=== PATIENT | female | born 1955 | race Caucasian/White ===

== ENCOUNTER 2017-03-19 13:08 | Inpatient (IN) ==
--- NOTE | 2017-03-18 21:42 | Discharge Summary ---
<Tamera Arce - Last Filed: 03/18/17 21:39> Date of Encounter: 03/18/17 - Discharge Diagnosis (1) Arthritis of knee, right Priority: Primary Status: Acute (2) Status post total knee replacement, right Priority: Primary Status: Acute (3) HTN (hypertension) Priority: Secondary Status: Chronic Qualifiers: Hypertension type: essential hypertension Qualified Code(s): I10 - Essential (primary) hypertension (4) Obesity Priority: Secondary Status: Chronic Qualifiers: Obesity type: unspecified obesity type Obesity classification: unspecified obesity classification (5) Depression Priority: Secondary Status: Chronic Qualifiers: Depression Type: unspecified Qualified Code(s): F32.9 - Major depressive disorder, single episode, unspecified - Discharge Medications Home Medications: Aspirin Enteric Coated [Aspirin EC] 325 mg PO DAILY #21 tablet.dr 03/18/17 [Rx] OxyCODONE Immed Rel [Roxicodone 5 MG] 5 mg PO Q6HR PRN #28 tablet 03/18/17 [Rx] DULoxetine [Cymbalta] 30 mg PO DAILY 03/19/17 [History] Duloxetine HCl [Cymbalta] 60 mg PO DAILY 03/19/17 [History] Allergies/Adverse Reactions: 3 Allergy/AdvReac Type Severity Reaction Status Date / Time No Known Allergies Allergy Verified 03/19/17 14:08 Primary care physician: Elfego Lee, - Patient Status Disposition: Home, Self-Care Condition: Good - Discharge Instructions Follow Up With: Elfego Lee MD [Primary Care Provider] - - Hospital Course Hospital course: Ms. Siegel is a 61 year old female - Time Spent with Patient Total time spent providing and/or coordinating discharge services: <Andriy Gusman - Last Filed: 03/20/17 06:32> Date of Encounter: 03/20/17 Time of Encounter: 06:32 - Discharge Diagnosis (1) Arthritis of knee, right Priority: Primary Status: Chronic (2) Status post total knee replacement, right Priority: Primary Status: Acute (3) HTN (hypertension) Priority: Secondary Status: Chronic Qualifiers: Hypertension type: essential hypertension Qualified Code(s): I10 - Essential (primary) hypertension (4) Obesity Priority: Secondary Status: Chronic Qualifiers: Obesity type: unspecified obesity type Obesity classification: adult class 3 (BMI >= 40) Body mass index: BMI 45.0-49.9 (5) Depression Priority: Secondary Status: Chronic Qualifiers: Depression Type: unspecified Qualified Code(s): F32.9 - Major depressive disorder, single episode, unspecified Primary care physician: Elfego Lee, - Patient Status Functional capacity at discharge: uses cane/walker Overall status at discharge: patient is progressing back to baseline - Hospital Course Hospital course: Ms. Siegel is a 61 year old female Status post right total knee replacement The patient had an uneventful postoperative course. They received antibiotics and physical therapy and were discharged in stable condition. There will follow -up in the office in 2 weeks. - Time Spent with Patient Total time spent providing and/or coordinating discharge services:
--- NOTE | 2017-03-19 13:21 | Anesthesia Evaluation PreOp ---
Date of Encounter: 03/19/17 Time of Encounter: 13:19 - Past History Planned Operation: Right Total knee Arthroplasty Cardiac History: Denies any Significant Hx Pulmonary History: Denies Any Significant HX PARALEGALS History: Denies Any Significant HX Other Medical History: Other (Fibromyalgia, vit. D Def.) Anesthesia History: Past Anesthesia (SAMANTHA, Knee scope), Problems (PONV) : No Alcohol Use: none Drug use: none Medications and Allergies Aspirin Enteric Coated [Aspirin EC] 325 mg PO DAILY #21 tablet. 03/18/17 [Rx] OxyCODONE Immed Rel [Roxicodone 5 MG] 5 mg PO Q6HR PRN #28 tablet 03/18/17 [Rx] 3 Allergy/AdvReac Type Severity Reaction Status Date / Time No Known Allergies Allergy Unverified 06/07/15 10:05 - Meds/Allergy Pre-op Review Medications Reviewed: Yes Allergies Reviewed: Yes Beta Blockers on Current Med List: No Anesthesia Results - Labs Laboratory Tests 03/01/17 03/01/17 03/01/17 13:55 13:55 13:55 WBC 5.8 Hgb 12.4 Hct 39.5 Plt Count 326 INR 1.0 Sodium 138 Potassium 3.8 Chloride 105 Carbon Dioxide 24 BUN 10 Creatinine 0.78 - Imaging EKG: image reviewed (SR) Anesthesia Exam O2 Sat Height 1.7 m Height 1.7 m Weight 131.088 kg Weight 131.088 kg O2 Sat by Pulse Oximetry 98 Vital Signs Temp Pulse Resp BP Pulse Ox 97.6 F 97 18 169/91 98 03/19/17 13:19 03/19/17 13:19 03/19/17 13:19 03/19/17 13:19 03/19/17 13:19 Height: 5'7'' Weight: 289# NPO (# of Hours): > 8 hrs Pain Scale: 0 Pain Scale Used: Numeric (1 - 10) - HEENT Pupil (Motor): Pupils equal, EOMI Mallampati: III Teeth: Normal Oral Opening: Greater than 3 - PARALEGALS LOC: Oriented PARALEGALS Motor: Normal RUE, Normal LUE, Normal RLE, Normal LLE, Normal Face PARALEGALS Sensory: Normal: RUE, LUE, RLE, LLE, Face - Cardiac Rhythm: Regular Murmur: None JVD: No Carotid Bruit: No - Pulmonary Breath Sounds: bilateral Clear Respiratory Effort: Symmetrical Anesthesia Assess/Plan ASA Score: 3 (Right Fem. Nerve Block) Modified Wendie Scale for Level of Consciousness: Cooperative, oriented, and tranquil Anesthetic Plan: General, Regional Autologous Blood: Yes Monitoring Plan: Standard Monitors Recovery Plan: PACU
[2017-03-19] MEDS ORDERED: Scopolamine Patch 1.5 MG PATCH.TD72 TD ONE (13:28)
[2017-03-19] MEDS ORDERED: Lidocaine -MPF 1% 2 ML VIAL ID ONE (13:28)
[2017-03-19] MEDS ORDERED: CeFAZolin Syr 3,000MG/30 ML 3,000 MG/30 ML SYRINGE IVPB ONE (13:28)
[2017-03-19] MEDS ORDERED: Ringers Solution, Lactated 1,000 ML IVC SCH ×2 (13:30→20:48)
[2017-03-19] MEDS ORDERED: Ondansetron 4 MG/2 ML VIAL IVP PRN ×2 (13:31→20:48)
[2017-03-19] MEDS ORDERED: *HR* Propofol 200 MG/20 ML VIAL IVP ONE ×3 (13:33→19:01)
[2017-03-19] MEDS ORDERED: *HR* FentaNYL (PF) 100 MCG/2 ML VIAL ONE ×2 (13:33→19:01)
[2017-03-19] MEDS ORDERED: *HR* Midazolam HCl 2 MG/2 ML VIAL ONE ×2 (13:33→19:01)
--- NOTE | 2017-03-19 13:54 | History & Physical Report ---
Date of Encounter: 03/19/17 Time of Encounter: 13:54 24 Hour HP Update - Instructions Instructions: If the History and Physical is less than 30 days old and was completed prior to A.M. admission and or procedure and has NOT been updated on calendar day of procedure please complete this update prior to performing procedure. - Update Patient reports changes in Medical Condition: No Changes in examination, assessment, or condition: No Changes in Medication: No Preop tests/diagnostics Reviewed: Yes Surgery Remains Indicated: Yes Consent for Planned Operative Procedure(s) Verified: Yes - Pre-Operative Checklist Preoperative Checklist Indicated: No Prophylactic Antibiotic Ordered: Yes Is VTE Prophylaxis Indicated?: Yes
[2017-03-19] MEDS ORDERED: Bupivacaine/Clonidine Syringe 1 EACH SYRINGE ONE ×2 (15:54→16:16)
[2017-03-19] MEDS ORDERED: ROPIVACAINE HCL/PF 0.5% 30 ML VIAL ONE (15:54)
[2017-03-19] MEDS ORDERED: Ethanol\\Acetic Acid\\Na Ace\\Ben 1,000 ML IRRIG.SOLN IR ONE (16:26)
--- NOTE | 2017-03-19 16:30 | Anesthesia Procedures ---
Date of Encounter: 03/19/17 Time of Encounter: 16:28 Procedures: Anesthesia - Nerve Block Procedure Date: 03/19/17 Time: 16:28 Allergies/Adv Reactions: nkda Pre-op Diagnosis: R knee arthritis Surgical Procedure: R TKA Checklist: Correct Patient Identifier, Correct procedure, History checked Correct side: Right Blood Thinner: No Monitor Applied: EKG, BP, Pulse Oximetry Supplemental Oxygen via Nasal Cannula (L/min): 3 Sedation: Versed (mg): 2 Sedation: Fentanyl (mcg): 100 Indication: Post Op Analgesia (requested by Dr. Gusman) Pre-op Neuro Deficits: No Block Type: Other (Adductor canal block & iPACK block) Catheter placed: No Sterile Technique: Yes Ultrasound used: Yes Anatomy identified: Yes Visual spread of Local: Yes Neuro Stimulation: No Nerve Stimulator Range: 0.2 - 0.4 mA Blood on Needle Aspiration: No Smooth Injection of Local: Yes Pain with Injection of Local: No Prep: Chlorhexadine Needle: 21 x 100 mm Stimuplex Local: 0.25% Bupivicaine w/Clonidine 20 mcg/cc (40mL), Ropivacaine (30mL), Other (4mg dexamethasone) Number of Attempts: 1 Complications: None/effective block Vitals: please see Brenda Han RN's electronic documentation
[2017-03-19] MEDS ORDERED: *HR* Enoxaparin 30 MG/0.3 ML SYRINGE SQ SCH (18:00)
[2017-03-19] MEDS ORDERED: Acetaminophen IV 1,000 MG/100 ML INFUS..BTL ONE (18:02)
--- NOTE | 2017-03-19 18:33 | Orthopedic Operative Note ---
Date of procedure: 03/19/17 Pre-op diagnosis: Right knee arthritis Post-op diagnosis: same Procedure: Procedure: Right Total knee replacement Estimated blood loss: 300 cc Hardware: Metal and polyethylene replacement. Arthrex Femur: 6 Tibia: 6 PS insert: 18 Patella: 34 Exam Under anesthesia: Full flexion and extension no instability Procedural Notes: Grade 4 arthritic changes medial compartment grade 3 arthritic changes patellofemoral joint. Operative procedure: The patient was brought to the operating room and placed on the operating room table. After general anesthesia was administered the operative knee was examined. Findings were noted in the exam under anesthesia. The operative extremity was prepped and draped in sterile surgical fashion. The patient received IV antibiotics prior to skin incision. A standard midline incision was made centered over the patella. The incision was made through the skin and subcutaneous tissue. A medial parapatellar tendon approach was performed. Care was taken to preserve tissue along the medial aspect of the patella. And to protect the patella tendon. The deep MCL was released off the medial tibia. The infra patella fat pad was excised. Knee was brought into flexion. Patient noted to have grade 4 arthritic changes medial compartment and grade 3 arthritic changes patellofemoral joint. The entry hole was made for the intramedullary femoral guide. The guide was seated in 6 degrees of valgus. Anterior cut was made followed by the distal cut. The ACL the PCL the medial and the lateral menisci were excised. The tibia was subluxed forward. The entry hole was made for the intramedullary tibial guide. Guide was seated to resect 2 mm off the more abnormal side. The knee was brought into flexion the distal femur was sized to a 6. The femoral guide was seated, the anterior cut was made followed by the posterior condylar cut, followed by the chamfer cuts. The finishing guide was seated the box cut was made and the lug holes were drilled. The tibia was sized to a 6, the tibial tray was seated and prepared with the large drill followed by the fin cutter. Trial reduction revealed full extension no varus valgus instability with the appropriate 18 PS Lisa. The patella was everted and cut was made at the level of the insertion of the quadriceps and patella tendon. The patella was sized 34 the guide was seated and the lug holes are drilled. Trial reduction revealed excellent patella tracking. All trial components were removed all bony surfaces were irrigated. The tibia was cemented first followed by the femur. 18 PS Lisa was seated and the knee was brought into full extension. The patella was cemented and held in place with the patellar holding clamp. After the cement had hardened, the knee sat for 2 minutes with a Betadine saline solution. The PA closed the knee. The knee was then irrigated out with 2 L of pulse irrigation. The extensor mechanism was closed with #2 FiberWire suture and #2 PDS suture. The subcutaneous tissue was then irrigated and closed deep with #1 PDS suture superficially with 0 PDS suture and skin was closed with skin chante. The patient was then placed in a sterile dressing and a postoperative brace extubated and transferred to recovery room in stable condition. Anesthesia: GETSonia Surgeon: Andriy Gusman Condition: stable Disposition: PACU
[2017-03-19] MEDS ORDERED: Lidocaine -MPF 4% 5 ML AMPUL ONE (19:01)
[2017-03-19] MEDS ORDERED: Lidocaine -MPF 2% 2 ML VIAL ONE (19:01)
[2017-03-19] MEDS ORDERED: Ondansetron 4 MG/2 ML VIAL ONE (19:01)
[2017-03-19] MEDS ORDERED: Dexamethasone 4 MG/ML VIAL ONE ×2 (19:01)
[2017-03-19] MEDS ORDERED: *HR* HYDROmorphone 2 MG/ML SYRINGE ONE (19:01)
[2017-03-19] MEDS ORDERED: Ketorolac 30 MG/ML VIAL ONE (19:01)
[2017-03-19] MEDS: *HR* HYDROmorphone (PF) 1 MG/ML SYRINGE IVP PRN ×2 (19:20→19:27)
[2017-03-19 19:38] LABS: Hemoglobin 12.4 g/dL (11.5-15.4)
[2017-03-19] MEDS ORDERED: cloNIDine HCl 0.1 MG TABLET PO ONE (19:47)
[2017-03-19] MEDS ORDERED: MOM Conc 10 ML UD.LIQ PO PRN (20:48)
[2017-03-19] MEDS ORDERED: *HR* OxyCODONE Immed Rel 5 MG TABLET PO PRN (20:48)
[2017-03-19] MEDS ORDERED: Naloxone 0.4 MG/ML INJ IVP PRN (20:48)
[2017-03-19] MEDS ORDERED: Temazepam 15 MG CAPSULE PO PRN (20:48)
[2017-03-19] MEDS ORDERED: *HR* HYDROmorphone (PF) 1 MG/ML SYRINGE IVP PRN (20:48)
[2017-03-19] MEDS ORDERED: Sennosides 8.6 MG TABLET PO PRN (20:48)
[2017-03-19] MEDS ORDERED: Gabapentin 300 MG CAPSULE PO SCH (21:00)
[2017-03-19] MEDS: *HR* OxyCODONE Immed Rel 5 MG TABLET PO PRN (21:28)
[2017-03-19] MEDS: CeFAZolin Syr 3,000MG/30 ML 3,000 MG/30 ML SYRINGE IVPB SCH (22:57)
[2017-03-20] MEDS: *HR* OxyCODONE Immed Rel 5 MG TABLET PO PRN ×3 (02:57→12:23)
[2017-03-20 05:50] LABS: Hematocrit 33.4 % (35.3-44.9)
[2017-03-20 05:56] LABS: Hemoglobin 10.5 g/dL (11.5-15.4)
[2017-03-20] MEDS ORDERED: *HR* Enoxaparin 30 MG/0.3 ML SYRINGE SQ SCH (06:00)
[2017-03-20 06:01] LABS: BUN/Creatinine Ratio 15 (6-26); Blood Urea Nitrogen 11 mg/dL (7-20); Calcium 8.4 mg/dL (8.6-10.8); Carbon Dioxide 28 mEq/L (19-29); Chloride 103 mEq/L (98-109); Glucose 137 mg/dL (70-99); Osmolality,Calculated 284 (280-300); Potassium 4.8 mEq/L (3.5-4.5); Sodium 136 mEq/L (136-145); eGFR For African Americans > 60 (> 60); eGFR For Non-African Americans > 60 (> 60)
--- NOTE | 2017-03-20 06:33 | Orthopedics Progress Note ---
Date of Encounter: 03/20/17 Time of Encounter: 06:33 - Assessment and Plan (1) Arthritis of knee, right Current Visit: No Status: Chronic (2) Status post total knee replacement, right Current Visit: No Status: Acute (3) HTN (hypertension) Current Visit: No Status: Chronic Qualifiers: Hypertension type: essential hypertension Qualified Code(s): I10 - Essential (primary) hypertension (4) Obesity Current Visit: No Status: Chronic Qualifiers: Obesity type: unspecified obesity type Obesity classification: adult class 3 (BMI >= 40) Body mass index: BMI 45.0-49.9 Qualified Code(s): E66.9 - Obesity, unspecified; Z68.42 - Body mass index (BMI) 45.0-49.9, adult; Z68.42 - Body mass index (BMI) 45.0-49.9, adult; Z68.42 - Body mass index (BMI) 45.0-49.9 , adult; Z68.42 - Body mass index (BMI) 45.0-49.9, adult (5) Depression Current Visit: No Status: Chronic Qualifiers: Depression Type: unspecified Qualified Code(s): F32.9 - Major depressive disorder, single episode, unspecified Subjective Interval history: Patient was seen this morning doing well without complaints. Afebrile vital signs stable. Operative extremity: Neurovascularly intact Dressing clean dry and intact Calves nontender Assessment and plan: Continue with postoperative care Discharge today Objective Vital signs: Vital Signs Temp Pulse Resp BP Pulse Ox 03/20/17 04:03 97.3 F L 86 16 126/74 97 03/20/17 00:24 97.4 F L 89 17 139/81 97 03/19/17 23:30 97.6 F 74 14 141/73 95 03/19/17 22:30 97.6 F 71 14 148/80 96 03/19/17 21:30 98.5 F 84 17 163/82 96 03/19/17 21:00 97.5 F L 90 14 154/82 99 03/19/17 20:41 98.0 F 91 16 151/82 94 03/19/17 20:30 98.0 F 76 15 99 03/19/17 20:10 98.3 F 72 14 139/71 92 03/19/17 20:00 98.3 F 77 12 150/73 92 03/19/17 19:50 97.8 F 77 14 148/72 95 03/19/17 19:40 96 12 147/64 98 03/19/17 19:30 79 16 135/67 98 03/19/17 19:20 91 18 149/74 100 03/19/17 19:10 98.3 F 88 12 153/76 95 03/19/17 17:20 85 136/72 100 03/19/17 16:57 80 16 126/67 96 03/19/17 16:32 90 16 134/63 97 03/19/17 16:10 90 16 145/69 97 03/19/17 13:19 97.6 F 97 18 169/91 98 Intake and Output 03/19/17 03/19/17 03/20/17 15:59 23:59 07:59 Intake Total 160 / 160 Output Total 300 / 300 Balance -140 / -140 Intake: IV Fluids 60 / 60 Ancef Syringe 3,000 MG/30 ML 3, 60 / 60 000 mg In 30 ml @ 200 mls/hr IVPB Q8HR [facility]IC[facility] Rx#:[id number] Oral 100 / 100 Output: Estimated Blood Loss 300 / 300 Other: Weight 131.088 kg 136.73 kg - Labs CBC & BMP: 03/20/17 04:43 03/20/17 04:43 Labs: Abnormal lab results Hgb 10.5 g/dL (11.5-15.4) L D 03/20/17 04:43 Hct 33.4 % (35.3-44.9) L 03/20/17 04:43 Potassium 4.8 mEq/L (3.5-4.5) H 03/20/17 04:43 Glucose 137 mg/dL (70-99) H 03/20/17 04:43 Calcium 8.4 mg/dL (8.6-10.8) L 03/20/17 04:43 - VTE Documentation of Mechanical Device: Venous foot pump, device Consult Discharge Plan - Plan Referrals: Elfego Lee MD [Primary Care Provider] -
[2017-03-20] MEDS: CeFAZolin Syr 3,000MG/30 ML 3,000 MG/30 ML SYRINGE IVPB SCH (08:15)
--- NOTE | 2017-03-20 11:35 | Physician Discharge Referral ---
Home Health/Hosp Referral Info Transfer to: Home Health Attending Provider: Provider in Charge Post Discharge: PCP - Diagnosis (1) Arthritis of knee, right Priority: Primary Status: Chronic (2) Status post total knee replacement, right Priority: Primary Status: Acute (3) HTN (hypertension) Priority: Secondary Status: Chronic (4) Obesity Priority: Secondary Status: Chronic (5) Depression Priority: Secondary Status: Chronic - Respiratory Orders None Smoking Cessation: Smoking cessation has been advised. For more information, call the [place] Tobacco Quit Line at 4-425-FLTU-NOW. - Diet/Nutrition Diet/Nutrition Orders: Regular - Activity Activity Orders: Up ad rhonda, Ambulate, Chair - Services Needed Following services are medically necessary services: Nursing, Home Health Aide, Physical Therapy, Occupational Therapy Other Treatments: Opsite dressing, leave intact until first post-operative visit. If dressing becomes >50% saturated, contact office, remove dressing and place appropriate dressing in its place. Do not allow for dressing to get wet. Zipline dressing in place, plan to remove at post-operative day #14-16. Total Joint Precautions x 6 weeks Apply cold therapy wrap 3-6x/day for 20 minutes at a time. Encourage ambulation throughout the day Use Incentive spirometer 10x/hour. Elevate affected extremity above heart as tolerated. Brace: Wear knee immobilizer at night x 2 weeks. - Transfer Medications Home Medications: Aspirin Enteric Coated [Aspirin EC] 325 mg PO DAILY #21 tablet. 03/18/17 [Rx] OxyCODONE Immed Rel [Roxicodone 5 MG] 5 mg PO Q6HR PRN #28 tablet 03/18/17 [Rx] DULoxetine [Cymbalta] 30 mg PO DAILY 03/19/17 [History] Duloxetine HCl [Cymbalta] 60 mg PO DAILY 03/19/17 [History] Allergies/Adverse Reactions: 3 Allergy/AdvReac Type Severity Reaction Status Date / Time No Known Allergies Allergy Verified 03/19/17 14:08 Certification: Further, I certify that my clinical findings support that this patient is homebound (i.e. absences from home require considerable and taxing effort and are for medical reasons or bahai services or infrequently or short duration when for other reasons) because: Homebound Reason: Post-surgery restriction and or conditions limit ability to leave home Attestation: My signature below is to certify that this patient is under my care and that I, or nurse practitioner, or a physician's podiatrist assistant working with me, has a face-to -face encounter with this patient.
[2017-03-20 12:23] VITALS: BP 132/68
== END 2017-03-20 13:30 | disposition home or self-care (01) | DRG 470 ==
LOC: SAMDAY 13:08 → 3NENU 20:33
PROVIDERS: ADMIT Orthopaedic Surgery; ATTEND Orthopaedic Surgery